=== PATIENT | male | born 1995 | race Caucasian/White ===

== ENCOUNTER → 2021-02-18 | Outpatient (CLI) | payer OTHER ==
[2021-02-18 18:52] LABS: HEPATITIS B SURFACE ANTIGEN NEGATIVE (NEGATIVE); HEPATITIS C VIRUS ABY INDEX 0.1 INDEX (<0.8); HIV 1&2 SCREEN CENTAUR NEGATIVE (NEGATIVE)
[2021-02-18 21:25] LABS: GC DNA AMPLIFICATION NEGATIVE (NEGATIVE)
[2021-02-20 05:07] LABS: HEPATITIS A IgG TOTAL Negative (Negative); HEPATITIS B CORE ANTIBODY IGG Negative (Negative); HSV TYPE I IgG SPECIFIC <0.91 index (0.00-0.90); HSV TYPE II IgG SPECIFIC 5.82 index (0.00-0.90)
== END ==
LOC: M PLALAB 15:01
PROVIDERS: ATTEND Internal Medicine Infectious Disease
DX: Z72.52 High risk homosexual behavior (principal)